=== PATIENT | male | born 1970 | race Caucasian/White ===

== ENCOUNTER 2020-09-14 18:10 | Outpatient (CLI) | payer OTHER, MEDICAID ==
--- NOTE | 2020-09-15 14:17 | XRAY Report ---
PROCEDURE: Ribs 2 View RT INDICATIONS: RIGHT CHEST WALL CONTUSION AND INJ TECHNIQUE: 3 views of the right ribs were acquired. COMPARISON: None FINDINGS: Surgical changes and devices: None. Bones and chest wall: No fractures or dislocations. No suspicious bony lesions. Overlying soft tis sues appear unremarkable. Lungs and pleura: The visualized lung appears clear. No pleural effusions or pneumothorax are visib le. IMPRESSION: Unremarkable right rib radiographs Reviewed by: Oz Eller MD on 09/15/2020 1:15 PM [facility] Approved by: Oz Eller MD on 09/15/2020 1:15 PM AKDT Station ID: [id number]
== END 2020-09-14 23:59 | disposition home or self-care (01) ==
LOC: DI.N 18:10
PROVIDERS: ATTEND Physician Assistant Medical
DX: S20.211A Contusion of right front wall of thorax, initial encounter (principal)

== ENCOUNTER 2021-01-26 08:00 | Outpatient (CLI) | payer OTHER, MEDICAID | END 2021-01-26 23:59 | disposition home or self-care (01) | LOC: LAB 08:00 | PROVIDERS: ATTEND Family Medicine | DX: R09.81 Nasal congestion (principal); Z20.822 Contact with and (suspected) exposure to COVID-19 ==

== ENCOUNTER 2022-01-01 16:43 | Outpatient (CLI) | payer OTHER ==
[2022-01-01] MEDS ORDERED: DIATRIZOATE MEGLU/DIATRIZO SOD 30 ML BOTTLE PO ONE ×2 (17:05→18:24)
[2022-01-01] MEDS ORDERED: iohexoL-300 100 ML VIAL ONE (17:05)
[2022-01-01] MEDS ORDERED: iohexoL-300 100 ML VIAL IVP ONE (18:24)
--- NOTE | 2022-01-02 17:04 | CT Report ---
PROCEDURE: Abdomen/Pelvis W INDICATIONS: LLQ ABD PAIN CONTRAST: IV CONTRAST: Optiray 320 ml: 100 PO CONTRAST: Optiray 320 ml50 TECHNIQUE: After the administration of weight appropriate dose of intravenous contrast, 5 mm thick sections acqu ired from the diaphragms to the symphysis. 5 mm thick coronal and sagittal reformats were acquired. For radiation dose reduction, the following was used: automated exposure control, adjustment of mA and/or kV according to patient size. Oral contrast was also given. COMPARISON: None. FINDINGS: Image quality: Excellent. ABDOMEN: Lung bases: Mild bibasilar atelectasis. Heart size is normal. Solid organs: Liver and spleen are normal in size and enhancement. Diffuse hypoattenuation the live r compatible with hepatic steatosis. Gallbladder is unremarkable. Biliary system is non dilated. Pa ncreas enhances normally. No adrenal nodules. Kidneys demonstrate normal size and enhancement, with out hydronephrosis. Bilateral near fluid attenuation hypodensities are noted measuring approximately 2.2 cm on the left and 3.6 cm on the right. These are likely bilateral renal cysts. Bilateral ureter s are normal in course and caliber. Peritoneum and bowel: Bowel loops demonstrate normal wall thickness and caliber. No free fluid or a ir. Scattered colonic diverticulosis without acute diverticulitis. Appendix is normal. Nodes and vessels: No retroperitoneal or mesenteric adenopathy by size criteria. Aorta and inferior vena cava are normal in size. Miscellaneous: Small fat-containing umbilical hernia without acute inflammation. PELVIS: Genitourinary: Bladder wall thickness is normal. Miscellaneous: No inguinal hernias or adenopathy. Bones: No suspicious bony lesions. No acute vertebral body compression fractures. IMPRESSION: 1. CT abdomen and pelvis without acute abnormalities to explain left lower quadrant abdominal pain. 2. Scattered colonic diverticulosis without acute diverticulitis. 3. No evidence for obstructive uropathy or urolithiasis. 4. Hepatic steatosis. 5. Small fat-containing umbilical hernia without acute inflammation. Reviewed by: Holden Schmidt MD on 01/02/2022 5:03 PM PDT Approved by: Hodlen Schmidt MD on 01/02/2022 5:03 PM PDT Station ID: [id number]
== END 2022-01-01 16:44 | disposition home or self-care (01) ==
LOC: DI 16:43
PROVIDERS: ATTEND Physician Assistant Medical
DX: R10.32 Left lower quadrant pain (principal); K57.30 Diverticulosis of large intestine without perforation or abscess without bleeding; K76.0 Fatty (change of) liver, not elsewhere classified; K42.9 Umbilical hernia without obstruction or gangrene
CPT/HCPCS: 74177; Q9963; Q9967

== ENCOUNTER 2022-11-13 16:14 | Emergency (ER) | payer MEDICAID, OTHER ==
[2022-11-13] MEDS ORDERED: BUFFERED LIDOCAINE 10 ML SYRINGE SUBQ STA (16:25)
[2022-11-13 16:26] VITALS: BP 160/116; O2SAT 96
--- NOTE | 2022-11-13 16:26 | ED Physician Documentation ---
PD HPI UPPER EXT INJURY - Stated complaint Stated Complaint: R HAND LAC - Chief complaint Chief Complaint: Laceration - History obtained from History obtained from: Patient (Right-handed gentleman who is up-to-date on tetanus smashed his right hand with a CD case at home about an hour and a half ago and has a laceration on the dorsum of the right hand. No other injuries.) PD PAST MEDICAL HISTORY - Past Medical History : Kidney stones - Past Surgical History Past Surgical History: No - Present Medications Home Medications: Ambulatory Orders Medication Instructions Recorded Confirmed No Known Home Medications 11/13/22 11/13/22 - Allergies Allergies/Adverse Reactions: Allergies Allergy/AdvReac Type Severity Reaction Status Date / Time No Known Drug Allergies Allergy Verified 11/13/22 16:21 - Social History Does the pt smoke?: No Smoking Status: Current every day smoker Does the pt drink ETOH?: Yes Does the pt have substance abuse?: No - Immunizations Immunizations are current?: Yes - POLST Patient has POLST: No PD ED PE NORMAL - Vitals Vital signs reviewed: Yes - General General: Alert and oriented X 3, No acute distress - Extremities Extremities: Other (1.5 cm curvilinear laceration over the dorsal medial right hand just proximal to the fifth MCP.) - Neuro Neuro: Alert and oriented X 3, Normal speech Results - Vitals Vitals: Vital Signs - 24 hr 11/13/22 16:18 Temperature 36 C L Heart Rate 92 Respiratory 16 Rate Blood Pressure 160/116 H O2 Saturation 96 Oxygen O2 Source Room air Procedures - Laceration (location) R hand Length in cm: 1.5 Wound type: Curved, Into subcut fat Neurovascular status: Sensory intact, Motor intact, Vascular intact Tendon involvement: Tendon intact Anesthesia: Lidocaine 1% Wound preparation: Hibiclens, Irrigated copiously NS Skin layer closure: Nylon, Interrupted, Size #-0 - enter number (4-0), Sutures - enter # (5) Other: Patient tolerated well, No complications, Neurovascular intact, Tetanus UTD Departure - Departure Disposition: 01 Home, Self Care Clinical Impression: Laceration of right hand Condition: Good Record reviewed to determine appropriate education?: Yes Instructions: ED Laceration Hand Comments: Come back for any signs of infection which would include: Redness, swelling, drainage, increased pain, or fevers. You can wash it soap and water. Keep it covered and moist with bacitracin ointment which is available over the counter; avoid neosporin. Follow-up with your physician in about 14 days for suture removal. Forms: PCP List
== END 2022-11-13 16:57 | disposition home or self-care (01) ==
LOC: ED 16:14
DX: S61.411A Laceration without foreign body of right hand, initial encounter (principal); W26.8XXA Contact with other sharp object(s), not elsewhere classified, initial encounter; F17.200 Nicotine dependence, unspecified, uncomplicated
CPT/HCPCS: 12001; 99282